=== PATIENT | male | born 1965 | race Caucasian/White ===

== ENCOUNTER 2018-11-28 19:13 | Emergency (ER) | payer SELFPAY ==
[2018-11-28 19:13] VITALS: BMI 24.2
[2018-11-28 19:26] VITALS: RESP 18; O2SAT 95
[2018-11-28] MEDS ORDERED: Sodium Chloride 0.9% 1,000 ML IV STA (20:12)
[2018-11-28] MEDS ORDERED: DiphenhydrAMINE 50 mg/ml Inj IVP STA (20:13)
[2018-11-28 20:41] LABS: BASO % 0.5 % (0.0-2.0); EOS # 0.2 K/uL (0.0-0.7); EOS % 3.6 % (0.0-4.0); HEMOGLOBIN 14.1 g/dL (12.0-18.0); LYMPH # 1.3 K/uL (1.0-4.3); LYMPH % 26.9 % (20.0-40.0); MEAN CELL VOLUME 82.1 fL (80.0-94.0); MEAN CORPUSCULAR HEMOGLOBIN 27.8 pg (27.0-31.0); MEAN CORPUSCULAR HGB CONC 33.8 g/dL (33.0-37.0); MEAN PLATELET VOLUME 8.6 fL (7.2-11.7); MONO # 0.6 K/uL (0.0-0.8); MONO % 12.1 % (0.0-10.0); NEUT # 2.7 K/uL (1.8-7.0); NEUT % 56.9 % (50.0-75.0); RBC 5.08 Mil/uL (4.40-5.90); WHITE BLOOD COUNT 4.8 K/uL (4.8-10.8)
[2018-11-28] MEDS ORDERED: Sodium Chloride 0.9% 1,000 ML ONE (20:58)
[2018-11-28] MEDS ORDERED: DiphenhydrAMINE 50 mg/ml Inj ONE (20:59)
[2018-11-28 21:07] LABS: ALB/GLOB RATIO 1.4 (1.0-2.1); ALBUMIN 4.2 g/dL (3.5-5.0); ALT/SGPT 37 U/L (21-72); AMYLASE 78 U/L (30-110); AST/SGOT 29 U/L (17-59); BLOOD UREA NITROGEN 22 mg/dL (9-20); CALCIUM 9.5 mg/dl (8.6-10.4); GFR NON-AFRICAN AMERICAN > 60; LIPASE 162 U/L (23-300)
--- NOTE | 2018-11-28 22:01 | C.PDOC ---
History Of Present Illness 53 y/o male presents to the ER complaining of generalized rash which has been present for the past 2 months.Patient states that the rash started as maculopapular rash. Patient reports that the rash has now spread to chest and right leg. Denies having fever and chills. Time Seen by Provider: 11/28/18 19:29 Chief Complaint (Nursing): Abnormal Skin Integrity History Per: Patient History/Exam Limitations: no limitations Onset/Duration Of Symptoms: Days Current Symptoms Are (Timing): Still Present Severity: Moderate Past Medical History Reviewed: Historical Data, Nursing Documentation, Vital Signs Vital Signs: Last Vital Signs Temp 98.4 F 11/28/18 19:21 Pulse 80 11/28/18 19:21 Resp 18 11/28/18 19:21 BP 158/94 H 11/28/18 19:21 Pulse Ox 95 11/28/18 19:21 - Medical History PMH: HTN Denies: Chronic Kidney Disease Surgical History: No Surg Hx Family History: States: No Known Family Hx - Social History Hx Tobacco Use: No Hx Alcohol Use: No Hx Substance Use: No - Immunization History Hx Tetanus Toxoid Vaccination: No Hx Influenza Vaccination: Yes Hx Pneumococcal Vaccination: No Review Of Systems Except As Marked, All Systems Reviewed And Found Negative. Constitutional: Negative for: Fever, Chills Skin: Positive for: Rash Physical Exam - Physical Exam Appears: Non-toxic, No Acute Distress Skin: Warm, Dry, Other ( silver scaly lesions on a dark hyperpigmented base on right anterior leg, chest and neck with pruritic maculo-papular rash) Head: Atraumatic, Normacephalic Eye(s): bilateral: Normal Inspection Nose: Normal Oral Mucosa: Moist Tongue: Normal Appearing, No Swelling Lips: Normal Appearing, No Swelling Neck: Supple Chest: Symmetrical Neurological/Psych: Oriented x3, Normal Speech ED Course And Treatment - Laboratory Results Result Diagrams: 11/28/18 20:42 11/28/18 20:49 Lab Results: Total Bilirubin 0.4 mg/dL (0.2-1.3) 11/28/18 20:49 AST 29 U/L (17-59) 11/28/18 20:49 ALT 37 U/L (21-72) 11/28/18 20:49 Alkaline Phosphatase 51 U/L (38-126) 11/28/18 20:49 Total Protein 7.2 g/dL (6.3-8.3) 11/28/18 20:49 Albumin 4.2 g/dL (3.5-5.0) 11/28/18 20:49 Globulin 3.0 gm/dL (2.2-3.9) 11/28/18 20:49 Albumin/Globulin Ratio 1.4 (1.0-2.1) 11/28/18 20:49 Amylase 78 U/L (30-110) 11/28/18 20:49 Lipase 162 U/L (23-300) 11/28/18 20:49 O2 Sat by Pulse Oximetry: 95 (RA) Pulse Ox Interpretation: Normal Progress Note: Labs ordered. Patient has been treated with Benadryl IV and IV Fluids. Disposition - Disposition Referrals: [facility] [Outside] Disposition: HOME/ ROUTINE Disposition Time: 22:20 Condition: STABLE Additional Instructions: Follow up in Clinic and with pottery striper within 1-2 days. Return to ED if feel worse. Prescriptions: DiphenhydrAMINE [Benadryl] 25 mg PO .Q4-6 H #30 cap Instructions: Skin Rash (DC) Forms: [facility] [employer] (Macedonian) - Clinical Impression Clinical Impression: Skin rash - PA / PRODUCT EXPERT / Resident Statement MD/DO has reviewed & agrees with the documentation as recorded. - Scribe Statement The provider has reviewed the documentation as recorded by the Scribe Mitra Kuo Provider Attestation All medical record entries made by the Scribe were at my direction and pe rsonally dictated by me. I have reviewed the chart and agree that the record accurately reflects my personal performance of the history, physical exam, medical decision making, and the department course for this patient. I have also personally directed, reviewed, and agree with the discharge instructions and disposition.
[2018-11-28 22:06] LABS: URINE BILIRUBIN NEGATIVE (NEGATIVE); URINE BLOOD NEGATIVE (NEGATIVE); URINE CLARITY Clear (Clear); URINE COLOR Straw (YELLOW); URINE GLUCOSE (UA) NORMAL (Normal); URINE LEUKOCYTE ESTERASE NEG Leu/uL (Negative); URINE PROTEIN NEGATIVE (NEGATIVE); URINE UROBILINOGEN NORMAL mg/dL (0.2-1.0)
[2018-11-28 23:02] VITALS: BP 132/83; PULSE 70; TEMP 97.7
== END 2018-11-28 23:02 | disposition home or self-care (01) ==
LOC: C.ER 19:13
DX: R21 Rash and other nonspecific skin eruption (principal); I10 Essential (primary) hypertension
CPT/HCPCS: 80053; 81001; 82150; 83690; 83735; 85025; 85651; 96374; 99283; J1200; J7030